=== PATIENT | female | born 1965 | race American Indian/Alaskan Native ===

== ENCOUNTER 2016-12-22 21:22 | Emergency (ER) | payer OTHER ==
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
--- NOTE | 2016-12-22 23:36 | XRay Report ---
FINAL REPORT PROCEDURE: Right ankle. TECHNIQUE: AP and lateral views. HISTORY: Right ankle injury. COMPARISON: No prior studies are available for comparison. FINDINGS: The bones appear intact without fracture or dislocation. The joint spaces appear normal. There is soft tissue swelling overlying the lateral malleolus. IMPRESSION: Soft tissue injury without fracture.
[2016-12-22] MEDS ORDERED: NORCO 10/325 PO ONE (23:47)
[2016-12-22] MEDS ORDERED: FLEXERIL PO ONE (23:47)
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
[2016-12-23 00:26] VITALS: BP 153/88
== END 2016-12-23 00:26 | disposition home or self-care (01) ==
LOC: ED 21:22
DX: S60.212A Contusion of left wrist, initial encounter (principal); V89.2XXA Person injured in unspecified motor-vehicle accident, traffic, initial encounter; Y93.89 Activity, other specified; Y99.8 Other external cause status; Y92.488 Other paved roadways as the place of occurrence of the external cause
CPT/HCPCS: 99283